=== PATIENT | female | born 1960 | race Two or more races ===

== ENCOUNTER 2017-08-04 13:00 | Day surgery (SDC) | payer OTHER ==
[2017-08-04] MEDS ORDERED: DIPHENHYDRAMINE 50 MG INJ (16:18)
[2017-08-04] MEDS ORDERED: MIDAZOLAM 1 MG/ML 2 ML INJ ×2 (16:50)
[2017-08-04] MEDS ORDERED: FENTAnyl 50 MCG/ML VIAL (16:50)
== END 2017-08-04 16:00 | disposition home or self-care (01) ==
LOC: GIL 13:00
DX: Z12.11 Encounter for screening for malignant neoplasm of colon (principal); Z80.0 Family history of malignant neoplasm of digestive organs
CPT/HCPCS: 45378